=== PATIENT | male | born 1950 | race Caucasian/White ===

== ENCOUNTER 2017-02-24 16:23 | Inpatient (IN) | payer OTHER ==
[~2017-02-24] VITALS: Ht 180.3 cm; Wt 129.2 kg
[~2017-02-24 16:23] MED LIST: ADVAIR 500/501 DISK; ADVAIR 500/501 DISK IH; APRESOLINE25 MG PO; ATARAX,VISTARIL50 MG; ATROVENT H200 INHALA; ATROVENT H200 INHALA IH; ATROVENT HFA12.9 GM IH; Advair HFA 230/21 IH; BD INSULIN SYR 1 ML; BMP 0; BUMETANIDE1 M1 PO; CETRAXAL1 EACH BOTH EARS; Combivent IH; DEBROX15 ML BOTH EARS; HUMULIN R500 UNITS/; HUMULIN R500 UNITS/ SC; HYDROXYZINE HCL25 M1 PO; HYDROXYZINE HCL50 MG PO; LEVAQUIN750 MG PO; LOTENSIN20 MG; LOTENSIN20 MG PO; Lotensin PO; METFORMIN HCL1000 M1; METFORMIN HCL1000 M1 PO; METFORMIN HCL1000 MG PO; Medrol Dosepak PO; OMEGA 3 1,0001 EACH PO; Omega III EPA + DHA PO; TAMSULOSIN HCL0.4 MG PO; VITAMIN D400 UNI1 PO; Vitamin D PO; ZITHROMAX Z-PA250 MG PO; [UNRECOGNIZED DRUG - OTHER] PO; [UNRECOGNIZED DRUG - REMARK]
[2017-02-24 20:32] LABS: BASOPHIL COUNT 0.1 K/uL (0-0.1); EOSINOPHIL (%) 3.3 % (0-5); EOSINOPHIL COUNT 0.2 K/uL (0-0.3); HEMATOCRIT 40.3 % (38.0-50.0); IMMATURE GRANULOCYTE (%) 0.4 % (0.0-0.7); INSTRUMENT ABS NEUTROPHIL CT 4.4 K/uL; LYMPHOCYTE COUNT 1.7 K/uL (1.0-2.8); MCH 27.7 PG (29.0-34.0); MCV 86.7 FL (86-99); MEAN PLAT.VOLUME 8.6 uM^3 (9.0-12.4); MONOCYTE (%) 7.7 % (3-12); MONOCYTE COUNT 0.5 K/uL (0-0.8); NEUTROPHIL (%) 62.5 % (45-76); NEUTROPHIL COUNT 4.4 K/uL (1.8-6.4); PLATELET COUNT 277 K/uL (156-360); RBC DIS.WIDTH-CV 13.3 % (11.8-14.6); RBC DIS.WIDTH-SD 41.8 % (39-53); RED BLOOD COUNT 4.65 M/uL (4.00-5.50)
[2017-02-24 20:48] LABS: CHLORIDE 105 mEq/L (99-109); POTASSIUM 5.1 mEq/L (3.7-5.4); SODIUM 142 mEq/L (136-147)
[2017-02-24 20:49] LABS: GLUCOSE 236 mg/dL (70-99)
[2017-02-24 20:51] LABS: ANION GAP 12 MEQ/L (2-14)
[2017-02-24 20:53] LABS: GFR ESTIMATE (CALCULATED) > 59 mL/min/
[2017-02-24 20:54] LABS: UREA NITROGEN (BUN) 18 mg/dL (9-23)
[2017-02-24] MEDS ORDERED: MORPHINE CON20 MG/M1 PO (21:18)
[2017-02-24] MEDS ORDERED: DURAGESIC12 MCG TD (21:19)
[2017-02-24] MEDS ORDERED: VITAMIN B122500 MCG PO (21:22)
[2017-02-24] MEDS ORDERED: FISH OIL 1,3601 EACH PO (21:23)
[2017-02-24] MEDS ORDERED: VENTOLIN HFA18 GM IH (23:20)
[2017-02-24] MEDS ORDERED: B-123000 MCG SL (23:22)
[2017-02-24] MEDS ORDERED: VITAMIN D22000 UNIT PO (23:22)
[2017-02-25 00:24] VITALS: BP 210/96
[2017-02-25 03:40] VITALS: BP 188/79
[2017-02-25 06:52] LABS: HEMATOCRIT 39.6 % (38.0-50.0); MCH 27.5 PG (29.0-34.0); MCHC 32.1 G/DL (30.0-36.0); MCV 85.9 FL (86-99); MEAN PLAT.VOLUME 8.6 uM^3 (9.0-12.4); PLATELET COUNT 282 K/uL (156-360); RBC DIS.WIDTH-CV 13.1 % (11.8-14.6); RBC DIS.WIDTH-SD 40.9 % (39-53); RED BLOOD COUNT 4.61 M/uL (4.00-5.50)
[2017-02-25 07:14] LABS: ALKALINE PHOSPHATASE 56 IU/L (3-129); ANION GAP 10 MEQ/L (2-14); CHLORIDE 104 MEQ/L (99-109); GFR ESTIMATE (CALCULATED) > 59 mL/min/; GLUCOSE 222 mg/dL (70-99); POTASSIUM 4.5 MEQ/L (3.7-5.4); SAMPLE HEMOLYSIS CHECK 0; SAMPLE ICTERIC CHECK 0; SAMPLE LIPEMIA CHECK 0; SODIUM 142 MEQ/L (136-147); TOTAL BILIRUBIN 0.5 MG/DL (0.0-1.0); UREA NITROGEN (BUN) 15 mg/dL (9-23)
[2017-02-25 08:00] VITALS: BP 182/81
[2017-02-25 12:21] VITALS: BP 182/82
[2017-02-25 23:36] VITALS: BP 167/78
[2017-02-26 02:28] LABS: POINT-OF-CARE METER ID UU14188577
[2017-02-26 05:53] LABS: BASOPHIL COUNT 0.1 K/uL (0-0.1); EOSINOPHIL (%) 2.9 % (0-5); EOSINOPHIL COUNT 0.2 K/uL (0-0.3); HEMATOCRIT 37.9 % (38.0-50.0); IMMATURE GRANULOCYTE (%) 0.4 % (0.0-0.7); INSTRUMENT ABS NEUTROPHIL CT 4.5 K/uL; LYMPHOCYTE COUNT 1.9 K/uL (1.0-2.8); MCH 27.6 PG (29.0-34.0); MCHC 32.2 G/DL (30.0-36.0); MCV 85.7 FL (86-99); MEAN PLAT.VOLUME 8.4 uM^3 (9.0-12.4); MONOCYTE (%) 9.9 % (3-12); MONOCYTE COUNT 0.7 K/uL (0-0.8); NEUTROPHIL (%) 60.4 % (45-76); NEUTROPHIL COUNT 4.5 K/uL (1.8-6.4); PLATELET COUNT 252 K/uL (156-360); RBC DIS.WIDTH-CV 13.1 % (11.8-14.6); RBC DIS.WIDTH-SD 40.9 % (39-53); RED BLOOD COUNT 4.42 M/uL (4.00-5.50); WHITE BLOOD COUNT 7.4 K/uL (4.1-10.2)
[2017-02-26 06:29] LABS: ANION GAP 7 MEQ/L (2-14); CHLORIDE 105 MEQ/L (99-109); GFR ESTIMATE (CALCULATED) > 59 mL/min/; GLUCOSE 130 mg/dL (70-99); POTASSIUM 4.3 MEQ/L (3.7-5.4); SAMPLE HEMOLYSIS CHECK 0; SAMPLE ICTERIC CHECK 0; SAMPLE LIPEMIA CHECK 0; SODIUM 141 MEQ/L (136-147); UREA NITROGEN (BUN) 12 mg/dL (9-23)
[2017-02-26 07:59] VITALS: BP 186/86
[2017-02-26 11:29] LABS: POINT-OF-CARE METER ID UU14117124
[2017-02-26 15:24] VITALS: BP 169/77
[2017-02-26 16:15] LABS: POINT-OF-CARE METER ID UU14117124
[2017-02-26 23:55] VITALS: BP 172/78
[2017-02-27 07:37] VITALS: BP 166/74
[2017-02-27 17:11] VITALS: BP 177/76
[2017-02-27 20:20] VITALS: BP 166/73
[2017-02-27 22:01] LABS: POINT-OF-CARE METER ID UU14208753
[2017-02-28 00:37] VITALS: BP 177/78
[2017-02-28 02:08] VITALS: BP 149/67
[2017-02-28 06:39] LABS: POINT-OF-CARE METER ID UU14117124
[2017-02-28 07:24] VITALS: BP 159/71
[2017-02-28] MEDS ORDERED: CEPHALEXIN500 MG PO (11:11)
[2017-02-28] MEDS ORDERED: MORPHINE CON20 MG/M1 PO (11:12)
[2017-02-28 11:21] LABS: POINT-OF-CARE METER ID UU14117124
[2017-02-28] MEDS ORDERED: FIORICET,ESG1 TABLET PO (12:19)
[2017-02-28] MEDS ORDERED: ZOFRAN4 MG PO (12:19)
[2017-02-28 13:04] LABS: POINT-OF-CARE METER ID UU14188577
[2017-02-28 13:04] LABS: POINT-OF-CARE METER ID UU14117124
== END 2017-02-28 14:15 | disposition home or self-care (01) | DRG 603 ==
LOC: EME 16:23 → EDOF 22:49 → 3EAST 22:49 → ENRESERV 22:51 → 3EAST 23:51
PROVIDERS: Hospitalist; Physician Assistant
DX: L03.115 Cellulitis of right lower limb (principal); L97.811 Non-pressure chronic ulcer of other part of right lower leg limited to breakdown of skin; J96.11 Chronic respiratory failure with hypoxia; J90 Pleural effusion, not elsewhere classified; I89.0 Lymphedema, not elsewhere classified; I87.2 Venous insufficiency (chronic) (peripheral); G89.29 Other chronic pain; I87.8 Other specified disorders of veins; E11.622 Type 2 diabetes mellitus with other skin ulcer; E11.649 Type 2 diabetes mellitus with hypoglycemia without coma; E66.01 Morbid (severe) obesity due to excess calories; J44.9 Chronic obstructive pulmonary disease, unspecified; J84.10 Pulmonary fibrosis, unspecified; I50.9 Heart failure, unspecified; I11.0 Hypertensive heart disease with heart failure; B18.2 Chronic viral hepatitis C; E78.5 Hyperlipidemia, unspecified; G47.30 Sleep apnea, unspecified; Z99.81 Dependence on supplemental oxygen; Z87.891 Personal history of nicotine dependence; Z79.4 Long term (current) use of insulin; Z68.39 Body mass index [BMI] 39.0-39.9, adult; Z79.84 Long term (current) use of oral hypoglycemic drugs; Z79.51 Long term (current) use of inhaled steroids; Z83.3 Family history of diabetes mellitus; Z82.49 Family history of ischemic heart disease and other diseases of the circulatory system
CPT/HCPCS: 71010; 80048; 80053; 80202; 82948; 83605; 83880; 85025; 85027; 87040; 93971; 94640; 94640 76; 94760; 94799; 99202; 99281; 99285; A6212; J0360; J0692; J1650; J1815; J3370; J7050; Q0169

== ENCOUNTER 2017-03-27 14:46 | Emergency (ER) | payer OTHER ==
[~2017-03-27] VITALS: Ht 180.3 cm; Wt 125.0 kg
[~2017-03-27 14:46] MED LIST changes: +B-123000 MCG SL; +CEPHALEXIN500 MG PO; +DURAGESIC12 MCG TD; +FIORICET,ESG1 TABLET PO; +FISH OIL 1,3601 EACH PO; +MORPHINE CON20 MG/M1 PO; +VENTOLIN HFA18 GM IH; +VITAMIN B122500 MCG PO; +VITAMIN D22000 UNIT PO; +ZOFRAN4 MG PO
[2017-03-27 16:29] LABS: BASOPHIL COUNT 0.1 K/uL (0-0.1); EOSINOPHIL (%) 2.4 % (0-5); EOSINOPHIL COUNT 0.2 K/uL (0-0.3); HEMATOCRIT 38.4 % (38.0-50.0); IMMATURE GRANULOCYTE (%) 0.4 % (0.0-0.7); INSTRUMENT ABS NEUTROPHIL CT 5.5 K/uL; LYMPHOCYTE COUNT 1.7 K/uL (1.0-2.8); MCH 28.4 PG (29.0-34.0); MCHC 33.3 G/DL (30.0-36.0); MCV 85.1 FL (86-99); MONOCYTE (%) 6.2 % (3-12); MONOCYTE COUNT 0.5 K/uL (0-0.8); NEUTROPHIL (%) 68.3 % (45-76); NEUTROPHIL COUNT 5.5 K/uL (1.8-6.4); PLATELET COUNT 237 K/uL (156-360); RBC DIS.WIDTH-CV 13.4 % (11.8-14.6); RBC DIS.WIDTH-SD 41.6 % (39-53); RED BLOOD COUNT 4.51 M/uL (4.00-5.50)
[2017-03-27 16:38] LABS: CHLORIDE 104 mEq/L (99-109); POTASSIUM 4.6 mEq/L (3.7-5.4); SODIUM 139 mEq/L (136-147)
[2017-03-27 16:40] LABS: GLUCOSE 316 mg/dL (70-99)
[2017-03-27 16:41] LABS: ANION GAP 11 MEQ/L (2-14)
[2017-03-27 16:42] LABS: TOTAL BILIRUBIN 0.5 mg/dL (0.0-1.0)
[2017-03-27 16:44] LABS: ALKALINE PHOSPHATASE 73 IU/L (3-129); GFR ESTIMATE (CALCULATED) > 59 mL/min/
[2017-03-27 16:45] LABS: UREA NITROGEN (BUN) 18 mg/dL (9-23)
[2017-03-27 16:47] LABS: CREATINE KINASE 58 IU/L (1-294); TOTAL CK 58 IU/L (1-294)
[2017-03-27 16:50] LABS: TROP-I INTERPRETATION NEGATIVE; TROPONIN-I < 0.01 ng/mL (0.0-0.30)
[2017-03-27 16:55] LABS: CK-MB 1.7 ng/mL (0.0-4.9)
[2017-03-27 18:00] VITALS: BP 168/75
[2017-03-27] MEDS ORDERED: BACTRIM,SEPT1 TABLET PO (19:08)
[2017-03-27] MEDS ORDERED: KEFLEX500 MG PO (19:08)
== END 2017-03-27 19:46 | disposition left against medical advice (07) ==
LOC: EME 14:46
PROVIDERS: Emergency Medicine
DX: L03.115 Cellulitis of right lower limb (principal); I89.0 Lymphedema, not elsewhere classified; R06.02 Shortness of breath; Z91.19 Patient's noncompliance with other medical treatment and regimen; J44.9 Chronic obstructive pulmonary disease, unspecified; E11.9 Type 2 diabetes mellitus without complications; Z79.4 Long term (current) use of insulin; Z87.891 Personal history of nicotine dependence; Z53.20 Procedure and treatment not carried out because of patient's decision for unspecified reasons
CPT/HCPCS: 71020; 80053; 81003; 82550; 82553; 83605; 83735; 83880; 84484; 85025; 87040; 93005; 93971; 99281; 99285; J3475